=== PATIENT | female | born 2000 | race Caucasian/White ===

== ENCOUNTER 2020-06-23 20:28 | Emergency (ER) | payer OTHER ==
[~2020-06-23] VITALS: Ht 165.1 cm; Wt 85.2 kg
--- NOTE | 2020-06-23 20:44 | PHYS DOC ---
Past History Past Medical History: Other Additional Past Medical Histor: HEP C Past Surgical History: No Surgical History Alcohol Use: None Drug Use: None Adult General Chief Complaint Chief Complaint: NEURO SYMPTOMS/DEFICITS HPI HPI Patient is an otherwise healthy G2, P1 at 35 weeks gestation who presents with a day of nausea, vomiting and diarrhea. States that it started yesterday, about at the same time and has had couple episodes of nonbloody nonbilious emesis. States she is currently still nauseous but had not had any episodes of vomiting for several hours. States that she has had some watery nonbloody diarrhea over the past day. States she has eaten a few crackers today and drink lots of water and otherwise feels well. States that her mom recently had similar symptoms but had not seen her in a week or so. Denies any recent travel, other illnesses, fevers, chest pain, shortness of breath, abdominal pain, dysuria, hematuria, bl ood in the stool. States she is still feeling the baby move, and his had no vaginal bleeding, discharge, loss of fluid. Review of Systems Review of Systems Review of systems otherwise unremarkable except noted in HPI Allergies Allergies Allergies Coded Allergies Type Severity Reaction Last Updated Verified No Known Drug Allergies 06/23/20 No Physical Exam Physical Exam Constitutional: Well developed, well nourished, no acute distress, non-toxic appearance. [] HENT: Normocephalic, atraumatic, bilateral external ears normal, oropharynx moist, no oral exudates, nose normal. [] Eyes: conjunctiva normal, no discharge. [] Neck: Normal range of motion, Cardiovascular: Sinus tachycardia Lungs & Thorax: Bilateral breath sounds clear to auscultation [] Abdomen: Gravid, positive movement, no tenderness, no masses, no pulsatile masses. [] Skin: Warm, dry, no erythema, no rash. [] Back: no CVA tenderness. [] Extremities: ROM intact, no edema. [] Neurologic: Alert and oriented X 3, cranial nerves intact, normal motor funct ion, normal sensory function, no focal deficits noted. Able to ambulate without issue. NIH of 0 [] Psychologic: Affect normal, judgement normal, mood normal. [] EKG EKG [] Radiology/Procedures Radiology/Procedures [] Heart Score C/O Chest Pain: No Risk Factors: Risk Factors: DM, Current or recent (<one month) smoker, HTN, HLP, family history of CAD, obesity. Risk Scores: Risk Factors: DM, Current or recent (<one month) smoker, HTN, HLP, family history of CAD, obesity. Course & Med Decision Making Course & Med Decision Making Patient is a 20-year-old female, at 35 weeks who presents with nausea, vomiting and diarrhea for day Vital signs notable for sinus tachycardia. Physical exam noted above. Patient placed on the monitor with IV access established and IV fluid given. Given Zofran for nausea. Laboratory analysis notable for mild hyponatremia and hypokalemia. Nausea resolved with Zofran. No more episodes of diarrhea in the ED. Patient feeling better. Discussed all findings with patient and recommended a course of antinausea medicine at home. Advised to make sure to stay hydrated. Advised proper nutrition. Advised to call [facility] first thing Friday to update on ED visit. Gave strict return precautions to the ED. Patient grateful, verbalized understanding and agreed with plan of discharge. [] Dragon Disclaimer Dragon Disclaimer This electronic medical record was generated, in whole or in part, using a voice recognition dictation system. Departure Departure: Impression: Primary Impression: Nausea vomiting and diarrhea Disposition: HOME / SELF CARE / HOMELESS Condition: GOOD Referrals: PCP,NO (PCP) Patient Instructions: Diarrhea, [id number], Nausea and Vomiting, [id number] Additional Instructions: Please read all of the attached information carefully. Please take your nausea medicine as prescribed, to allow appropriate hydration and nutrition intake as discussed. Your laboratory analysis was not concerning. Please follow-up first thing Friday with your [facility] to discuss your ED visit and set up a follow-up as needed. Please come back to the ED with new or concerning symptoms as discussed. Scripts Ondansetron Hcl (ZOFRAN) 4 Mg Tablet 1 TAB PO PRN Q6HRS PRN for NAUSEA for 10 Days, #6 TAB 1 Refill Prov: TIM FINNEY MD 06/23/20 TIM FINNEY MD Jun 23, 2020 20:44
[2020-06-23] MEDS ORDERED: IV RINGERS SOLUTION,LACTATED 1,000 ML IV ONE (20:45)
[2020-06-23] MEDS ORDERED: ONDANSETRON PF 4 MG/2 ML VIAL. IVP ONE (20:45)
[2020-06-23 21:09] LABS: BASO % 0 % (0-3); EOS % 0 % (0-3); HEMATOCRIT 33.6 % (36.0-47.0); HEMOGLOBIN 11.2 g/dL (12.0-15.5); LYMPH # 0.8 x10^3/uL (1.0-4.8); LYMPH % 8 % (24-48); MEAN CORPUSCULAR HEMOGLOBIN 28 pg (25-35); MEAN CORPUSCULAR HGB CONC 33 g/dL (31-37); MEAN CORPUSCULAR VOLUME 84 fL (79-100); MONO # 0.7 x10^3/uL (0.0-1.1); MONO % 7 % (0-9); NEUT # 9.2 x10^3uL (1.8-7.7); NEUT % 86 % (31-73); PLATELET COUNT 171 x10^3/uL (140-400); RED BLOOD COUNT 3.99 x10^6/uL (3.50-5.40); RED CELL DISTRIBUTION WIDTH 16.1 % (11.5-14.5); WHITE BLOOD COUNT 10.8 x10^3/uL (4.0-11.0)
[2020-06-23 21:18] LABS: CALCIUM 8.1 mg/dL (8.5-10.1); CREATININE 0.5 mg/dL (0.6-1.0); GFR 154.3; POTASSIUM 3.3 mmol/L (3.5-5.1)
[2020-06-23 21:24] LABS: ALBUMIN 2.5 g/dL (3.4-5.0); ALBUMIN/GLOBULIN RATIO 0.7 (1.0-1.7); TOTAL BILIRUBIN 1.1 mg/dL (0.2-1.0)
[2020-06-23 21:54] LABS: BACTERIA,URINE 0 /HPF (0-FEW); BILIRUBIN,URINE NEG (NEG); CLARITY,URINE CLEAR; COLOR,URINE YELLOW; GLUCOSE,URINE NEG (NEG); NITRITE,URINE NEG (NEG); RBC,URINE 0 /HPF (0-2); SQUAMOUS EPITHELIAL CELL,UR MANY /LPF; UROBILINOGEN,URINE 0.2 mg/dL (0.2 mg/dL); WBC,URINE 0 /HPF (0-4)
[2020-06-23 22:03] VITALS: BP 121/62
[2020-06-23] MEDS ORDERED: ONDA4TAB7 PO (22:23)
== END 2020-06-23 22:42 | disposition home or self-care (01) ==
LOC: ER 20:28
DX: O21.9 Vomiting of pregnancy, unspecified (principal); R19.7 Diarrhea, unspecified; Z3A.35 35 weeks gestation of pregnancy
CPT/HCPCS: 36415; 80053; 81001; 84484; 85025; 96361; 96374; 99283; J2405; J7120; 96375